=== PATIENT | male | born 1950 | race Caucasian/White ===

== ENCOUNTER 2016-09-26 07:14 | Inpatient (IN) | payer MEDICARE, OTHER ==
[2016-09-26] VITALS (26 sets, daily range): BP systolic 104–173; RESP 12–76; TEMP 97.4–99
[2016-09-26] MEDS ORDERED: PROPOFOL 50ML VIAL IV ONE (07:30)
[2016-09-26] MEDS ORDERED: SODIUM CHLORIDE 0.9% 1,000 ML ONE (08:09)
[2016-09-26] MEDS ORDERED: SODIUM CHLORIDE 0.9% 1,000 ML IV SCH (08:40)
[2016-09-26] MEDS ORDERED: SALINE FLUSH 10 ML FLUSH PRN (08:40)
[2016-09-26] MEDS ORDERED: LORAZEPAM 2 MG/ML VIAL IV PRN (10:55)
[2016-09-26] MEDS: PANTOPRAZOLE 40 MG VIAL IV SCH ×2 (11:22→20:18)
[2016-09-26] MEDS ORDERED: *PINK BRACELET XX ONE (12:00)
[2016-09-26] MEDS: MORPHINE 4 MG/ML SYR IV PRN ×3 (13:12→22:38)
[2016-09-26] MEDS: SALINE FLUSH 10 ML FLUSH SCH (19:54)
[2016-09-26] MEDS: *HOME MEDS KEPT IN PHARMACY XX SCH (20:00)
[2016-09-26] MEDS: SODIUM CHLORIDE 0.45% 1,000 ML IV SCH (21:59)
[2016-09-27 03:45] VITALS: BP_SYST 153; RESP 18; TEMP 98
[2016-09-27] MEDS: SODIUM CHLORIDE 0.45% 1,000 ML IV SCH (04:43)
[2016-09-27] MEDS ORDERED: SODIUM CHLORIDE 0.9% FLUSH BAG 500 ML IV SCH (06:00)
[2016-09-27] MEDS ORDERED: ACETAMINOPHEN 325 MG TAB PO ONE (07:00)
[2016-09-27 07:47] VITALS: BP_SYST 148; RESP 18; TEMP 98.5
[2016-09-27] MEDS: *HOME MEDS KEPT IN PHARMACY XX SCH ×2 (08:00→12:39)
[2016-09-27] MEDS: PANTOPRAZOLE 40 MG VIAL IV SCH (08:57)
[2016-09-27] MEDS: SALINE FLUSH 10 ML FLUSH SCH (08:57)
[2016-09-27 11:10] VITALS: BP_SYST 130; RESP 18; TEMP 98.6
[2016-09-27 12:23] VITALS: BP_SYST 130; RESP 18; TEMP 98.6
[2016-09-29] MEDS ORDERED: PANTOPRAZOLE 40 MG TAB PO SCH (16:00)
== END 2016-09-27 13:02 | disposition home or self-care (01) | DRG 378 ==
LOC: ENRESERVDT → ENRESERVTM → ER 07:14 → EMR 08:40 → ENPENDDIS 08:40 → 4THE 10:35
PROVIDERS: ADMIT Internal Medicine; ATTEND Internal Medicine
PROC: 0DJ08ZZ Inspection of Upper Intestinal Tract, Via Natural or Artificial Opening Endoscopic (ICD-10-PCS; principal; 2016-09-26 14:25)
DX: K92.2 Gastrointestinal hemorrhage, unspecified (principal); D62 Acute posthemorrhagic anemia; K25.9 Gastric ulcer, unspecified as acute or chronic, without hemorrhage or perforation; Z79.1 Long term (current) use of non-steroidal anti-inflammatories (NSAID)
CPT/HCPCS: 36415; 36430; 71010; 80053; 81003; 82274; 82553; 83690; 84484; 85014; 85018; 85025; 85610; 85730; 86850; 86900; 86901; 86923; 88305; 93005; 96360; 96361; 99223; 99239